=== PATIENT | female | born 1975 | race Caucasian/White ===

== ENCOUNTER 2018-08-12 13:27 | Observation (INO) ==
--- NOTE | 2018-08-11 22:01 | Discharge Summary ---
Date of Encounter: 08/15/18 Time of Encounter: 16:00 - Discharge Diagnosis (1) Arthritis of right knee Priority: Primary Status: Chronic (2) Status post total right knee replacement Priority: Primary Status: Acute (3) Tobacco dependence Priority: Secondary Status: Chronic (4) Hypothyroid Priority: Secondary Status: Chronic Qualifiers: Hypothyroidism type: unspecified Qualified Code(s): E03.9 - Hypothyroidism, unspecified (5) Bipolar disorder Priority: Secondary Status: Chronic Qualifiers: Active/Remission status: remission status unspecified Qualified Code(s): F31.9 - Bipolar disorder, unspecified (6) Sinus tachycardia Priority: Secondary Status: Chronic - Hospital Course Hospital course: Ms. Mckee is a 43 year old female Date of procedure: 08/12/18 Pre-op diagnosis: Right knee arthritis Post-op diagnosis: same Procedure: Right robotic-assisted Total knee replacement Patient had uneventful postoperative course. She developed some swelling to the operative extremity and doppler revealed no clot. Patient discharged to rehab with outpatient follow up arranged - Time Spent with Patient Total time spent providing and/or coordinating discharge services: - Discharge Medications Prescriptions: New Aspirin Enteric Coated [Aspirin EC] 325 mg PO BID 10 Days #20 tablet. Acetaminophen [Non-Aspirin Extra Strength] 500 mg PO Q6H PRN 7 Days #28 tablet PRN Reason: Mild To Moderate Pain Continued Albuterol Sulfate [Proair Hfa] 2 puff PO Q6H PRN PRN Reason: Shortness Of Breath diazePAM [Valium] 5 mg PO TID PRN PRN Reason: Anxiety Fluticasone Propionate [Flovent Hfa] 2 puff PO BID Gabapentin [Neurontin] 300 mg PO BID Ibuprofen [Motrin] 600 mg PO DAILY PRN PRN Reason: Pain lamoTRIgine [Lamictal] 25 mg PO HS Metoprolol Succinate [Toprol Xl] 25 mg PO QAM raNITIdine HCl [Zantac] 150 mg PO HS Sulindac 200 mg PO BID Home Medications: Acetaminophen [Non-Aspirin Extra Strength] 500 mg PO Q6H PRN 7 Days #28 tablet 08/11/18 [Rx] Aspirin Enteric Coated [Aspirin EC] 325 mg PO BID 10 Days #20 tablet. 08/11/18 [Rx] Albuterol Sulfate [Proair Hfa] 2 puff PO Q6H PRN 08/12/18 [History] Fluticasone Propionate [Flovent Hfa] 2 puff PO BID 08/12/18 [History] Gabapentin [Neurontin] 300 mg PO BID 08/12/18 [History] Ibuprofen [Motrin] 600 mg PO DAILY PRN 08/12/18 [History] Metoprolol Succinate [Toprol Xl] 25 mg PO QAM 08/12/18 [History] Sulindac 200 mg PO BID 08/12/18 [History] diazePAM [Valium] 5 mg PO TID PRN 08/12/18 [History] lamoTRIgine [Lamictal] 25 mg PO HS 08/12/18 [History] raNITIdine HCl [Zantac] 150 mg PO HS 08/12/18 [History] Allergies/Adverse Reactions: Allergy/AdvReac Type Severity Reaction Status Date / Time No Known Allergies Allergy Verified 08/12/18 13:51 Date of admission: 08/12/18 Primary care physician: Eladio Vazquez MD Discharging clinician: Rajesh De La Cruz Anticipated date of discharge: 08/15/18 - VTE Documentation of Mechanical Device: Venous foot pump, device - Patient Status Disposition: Transfer SNF Condition: Good Functional capacity at discharge: uses cane/walker Overall status at discharge: patient is progressing back to baseline - Discharge Instructions Follow Up With: Eladio Vazquez MD [Primary Care Provider] - - Diet and Activity Activity: as per physical therapy Diet: advance to your usual diet
--- NOTE | 2018-08-12 12:40 | Anesthesia Evaluation PreOp ---
Date of Encounter: 08/12/18 Time of Encounter: 11:54 - Past History Planned Operation: RIGHT TKA Cardiac History: Arrhythmia (PALPITATIONS, ON METOPROLOL, HOLTER UNREMARKABLE) Pulmonary History: Smoker, COPD (MILD) [employer] F[employer] History: Other (BIPOLAR,) Other Medical History: Thyroid, GERD, Other (ORAL HERPES) Anesthesia History: No Prior Anesthetic Complications, Past Anesthesia : No Test: Negative (08/08) Alcohol Use: none Drug use: none Medications and Allergies Acetaminophen [Non-Aspirin Extra Strength] 500 mg PO Q6H PRN 7 Days #28 tablet 08/11/18 [Rx] Aspirin Enteric Coated [Aspirin EC] 325 mg PO BID 10 Days #20 tablet.dr 08/11/18 [Rx] Docusate Sodium [Colace] 100 mg PO BID 5 Days #10 capsule 08/11/18 [Rx] OxyCODONE Immed Rel [Roxicodone 5 MG] 5 mg PO Q6HR PRN 5 Days #20 tablet 08/11/18 [Rx] Albuterol Sulfate [Proair Hfa] 2 puff PO Q6H PRN 08/12/18 [History] Fluticasone Propionate [Flovent Hfa] 2 puff PO BID 08/12/18 [History] Gabapentin [Neurontin] 300 mg PO BID 08/12/18 [History] Ibuprofen [Motrin] 600 mg PO DAILY PRN 08/12/18 [History] Metoprolol Succinate [Toprol Xl] 25 mg PO QAM 08/12/18 [History] Sulindac 200 mg PO BID 08/12/18 [History] diazePAM [Valium] 5 mg PO TID PRN 08/12/18 [History] lamoTRIgine [Lamictal] 25 mg PO HS 08/12/18 [History] raNITIdine HCl [Zantac] 150 mg PO HS 08/12/18 [History] Allergy/AdvReac Type Severity Reaction Status Date / Time No Known Allergies Allergy Verified 08/12/18 13:51 - Meds/Allergy Pre-op Review Medications Reviewed: Yes Allergies Reviewed: Yes Beta Blockers on Current Med List: Yes Anesthesia Exam Weight: 81 KG - BMI 27 NPO (# of Hours): 8 - HEENT Mallampati: I Teeth: Normal - Cardiac Rhythm: Regular - Pulmonary Breath Sounds: bilateral Clear Anesthesia Assess/Plan ASA Score: 3 Anesthetic Plan: Regional Nerve Block, MAC, Spinal Monitoring Plan: Standard Monitors Recovery Plan: PACU
--- NOTE | 2018-08-12 13:44 | History & Physical Report ---
Date of Encounter: 08/12/18 Time of Encounter: 13:43 24 Hour HP Update - Instructions Instructions: If the History and Physical is less than 30 days old and was completed prior to A.M. admission and or procedure and has NOT been updated on calendar day of procedure please complete this update prior to performing procedure. - Update Patient reports changes in Medical Condition: No Changes in examination, assessment, or condition: No Changes in Medication: No Preop tests/diagnostics Reviewed: Yes Surgery Remains Indicated: Yes Consent for Planned Operative Procedure(s) Verified: Yes - Pre-Operative Checklist Preoperative Checklist Indicated: No Prophylactic Antibiotic Ordered: Yes Is VTE Prophylaxis Indicated?: Yes
[2018-08-12] MEDS ORDERED: CeFAZolin Syr 2,000MG/20 ML 2,000 MG/20 ML SYRINGE IVPB ONE (13:45)
[2018-08-12] MEDS ORDERED: Ringers Solution, Lactated 1,000 ML IVC SCH ×2 (13:45→17:33)
[2018-08-12] MEDS ORDERED: Albuterol 2.5 MG/3 ML NEBULIZER IH ONE ×2 (13:45→14:28)
[2018-08-12] MEDS ORDERED: *HR* Midazolam HCl 2 MG/2 ML VIAL ONE (13:54)
[2018-08-12] MEDS ORDERED: *HR* FentaNYL (PF) 100 MCG/2 ML VIAL ONE (13:55)
[2018-08-12] MEDS ORDERED: Propofol 500 MG/50 ML INFUS..BTL ONE (13:55)
[2018-08-12] MEDS ORDERED: ROPIVACAINE HCL/PF 0.5% 30 ML VIAL ONE (14:01)
[2018-08-12] MEDS ORDERED: Lidocaine -MPF 1% 5 ML AMPUL ONE (14:19)
[2018-08-12] MEDS ORDERED: Ethanol\\Acetic Acid\\Na Ace\\Ben 1,000 ML IRRIG.SOLN IR ONE (14:26)
[2018-08-12] MEDS ORDERED: traMADol 50 MG TABLET PO ONE (14:27)
[2018-08-12] MEDS ORDERED: Gabapentin 300 MG CAPSULE PO ONE (14:27)
[2018-08-12] MEDS ORDERED: Celecoxib 200 MG CAPSULE PO ONE ×2 (14:27→14:36)
[2018-08-12] MEDS ORDERED: diazePAM 5 MG TABLET PO ONE ×2 (14:28→14:36)
[2018-08-12] MEDS ORDERED: *HR* Promethazine 25 MG/ML VIAL IVP PRN ×2 (14:28→17:33)
[2018-08-12] MEDS ORDERED: *HR* HYDROmorphone (PF) 1 MG/ML SYRINGE IVP PRN (14:28)
[2018-08-12] MEDS ORDERED: *HR* OxyCODONE Immed Rel 5 MG TABLET PO PRN (14:28)
[2018-08-12] MEDS ORDERED: Ondansetron 4 MG/2 ML VIAL IVP ONE (14:28)
[2018-08-12] MEDS ORDERED: traMADol 50 MG TABLET ONE (14:36)
[2018-08-12] MEDS ORDERED: Gabapentin 300 MG CAPSULE ONE (14:37)
[2018-08-12] MEDS ORDERED: *HR* Propofol 200 MG/20 ML VIAL IVP ONE (14:43)
--- NOTE | 2018-08-12 15:16 | Anesthesia Procedures ---
Date of Encounter: 08/12/18 Time of Encounter: 15:00 Procedures: Anesthesia - Epidural/Spinal Patient ID/Chart reviewed: Yes Patient examined: Yes Consent Obtained: Yes Supplemental Oxygen: Nasal Cannula Supplemental Oxygen Rate (L/min): 2 Sedation: Versed (mg): 2 Sedation: Fentanyl (mcg): 100 Site Prep: Sterile prep and drape, 0.5% Chlorhexidine/Alcohol Patient position: upright Local Anesthetic: Lidocaine 1% Amount of Local Anesthetic used: 1 Interspace Used: L3-L4 Blood: No CSF: Yes Paresthesia: No Spinal Needle Gauge: 24 Spinal Dose: 2.5cc 0.5% PF Marcaine Procedure: naac - Nerve Block Procedure Date: 08/12/18 Time: 15:10 Surgical Procedure: Right TKA Checklist: Correct Patient Identifier, Correct procedure, History checked Correct side: Right Blood Thinner: No Monitor Applied: EKG, BP, Pulse Oximetry Supplemental Oxygen via Nasal Cannula (L/min): 2 Sedation: Versed (mg): 2 Sedation: Fentanyl (mcg): 100 Indication: Post Op Analgesia (per dr. mcleod) Pre-op Neuro Deficits: No Block Type: Other (adductor canal) Catheter placed: No Sterile Technique: Yes Ultrasound used: Yes Anatomy identified: Yes Visual spread of Local: Yes Neuro Stimulation: No Blood on Needle Aspiration: No Smooth Injection of Local: Yes Pain with Injection of Local: No Prep: Chlorhexadine Needle: 22 x 50 mm Stimuplex Local: Ropivacaine (0.5% with 4mg decadron) Volume (cc): 15 Number of Attempts: 1 Complications: None/effective block Vitals: [facility]
[2018-08-12] MEDS ORDERED: *HR* PHENYLEPHRINE 1,000 MCG/10 ML SYRINGE IVP ONE (15:17)
[2018-08-12] MEDS ORDERED: EPHEDrine 50 MG/ML VIAL ONE (15:20)
[2018-08-12] MEDS ORDERED: Ropivacaine/PF 0.5% 24.62 ML, EPINEPHrine 0.25 MG, Ketorolac 15 MG, Water for inj. (ste... IR ONE (15:35)
[2018-08-12] MEDS ORDERED: Dexamethasone 4 MG/ML VIAL ONE (15:43)
[2018-08-12] MEDS ORDERED: Ondansetron 4 MG/2 ML VIAL ONE (15:43)
[2018-08-12] MEDS ORDERED: Ketorolac 30 MG/ML VIAL ONE (15:56)
--- NOTE | 2018-08-12 16:13 | Orthopedic Operative Note ---
Date of procedure: 08/12/18 Pre-op diagnosis: Right knee arthritis Post-op diagnosis: same Procedure: Procedure: Right robotic-assisted Total knee replacement Estimated blood loss: 100 cc Hardware: Metal and polyethylene replacement. Mcdonald press-fit Femur: 3 Tibia: 3 PS insert: 9 Patella: 36 Exam Under anesthesia: Patient with 3 degrees hyperextension to degrees of varus as calculated by the robot full flexion and no instability Procedural Notes: Grade 4 arthritic changes medial compartment grade 3 arthritic changes patellofemoral joint. Operative procedure: The patient was brought to the operating room and placed on the operating room table. After general anesthesia was administered the operative knee was examined. Findings were noted in the exam under anesthesia. The operative extremity was prepped and draped in sterile surgical fashion. The patient received IV antibiotics prior to skin incision. A standard midline incision was made centered over the patella. The incision was made through the skin and subcutaneous tissue. A medial parapatellar tendon approach was performed. Care was taken to preserve tissue along the medial aspect of the patella. And to protect the patella tendon. The deep MCL was released off the medial tibia. The infra patella fat pad was excised. The patella was everted and cut was made at the level of the insertion of the quadriceps and patella tendon. The patella was sized the guide was seated and the lug holes are drilled. Knee was brought into flexion. Patient noted to have Steinmann pins were placed in the tibia and the femur for the tibial and femoral arrays respectively. Checkpoints were also placed in the tibia and the femur for calculation purposes. The knee including the femur and the tibial registered. Osteophytes, ACL and PCL were excised at this point. Extension and flexion were assessed with a valgus stress components were adjusted on the computer to balance the knee. Femoral cuts were made first with robotic assistance, these included the anterior cut posterior cuts chamfer cuts. Tibial cut was then performed with robotic assistance as well. Bone fragments were removed, as well as the medial and lateral meniscus. The size 3 femoral guide was seated box cut was made lug holes are drilled. The size 3 tibial tray was seated and prepared with the fin cutter. Trial reduction with the 9 PS Nae revealed extension of 0 degree and 3 degree varus full flexion. No varus valgus instability. Trial reduction revealed excellent patella tracking. All trial components were removed all bony surfaces were irrigated. The Tibia was seated followed by the femur, The selected Nae size was seated and secured patella. Patient had similar findings for motion and stability. The knee was closed by the PA. The knee was then irrigated out with 2 L of pulse irrigation. The extensor mechanism was closed with #2 FiberWire suture and #2 PDS suture. The subcutaneous tissue was then irrigated and closed deep with #1 PDS suture superficially with 0 PDS suture and skin was closed with zip tie The patient was then placed in a sterile dressing and a postoperative brace extubated and transferred to recovery room in stable condition. Anesthesia: spinal Surgeon: Rajesh De La Cruz Was there an assistant women's tennis coach present: No Estimated blood loss (cc): 100 Condition: stable Disposition: PACU
--- NOTE | 2018-08-12 17:16 | Anesthesia Evaluation Post Op ---
Date of Encounter: 08/12/18 Time of Encounter: 17:16 - Discharge PostOp Status: Transfer Patient to floor (Patient's vital signs have been reviewed. Patient is stable postoperatively and has adequately recovered from anesthesia. Patient is determined to have stable airway patency and respiratory function including respiratory rate and oxygen saturation. Patient has a stable heart rate, blood pressure and adequate hydration. Patients mental status is acceptable. Patients temperature is appropriate. Pain and nausea are adequately controlled.)
[2018-08-12] MEDS ORDERED: MOM Conc 10 ML UD.LIQ PO PRN (17:33)
[2018-08-12] MEDS ORDERED: traMADol 50 MG TABLET PO PRN (17:33)
[2018-08-12] MEDS ORDERED: Ondansetron 4 MG/2 ML VIAL IVP PRN (17:33)
[2018-08-12] MEDS ORDERED: Sennosides 8.6 MG TABLET PO PRN (17:33)
[2018-08-12] MEDS ORDERED: Temazepam 15 MG CAPSULE PO PRN (17:33)
[2018-08-12] MEDS ORDERED: Naloxone 0.4 MG/ML INJ IVP PRN (17:33)
[2018-08-12] MEDS: *HR* Enoxaparin 30 MG/0.3 ML SYRINGE SQ SCH (18:02)
[2018-08-12] MEDS: Ibuprofen 600 MG TABLET PO SCH (18:02)
[2018-08-12] MEDS: Ascorbic Acid 500 MG TABLET PO SCH (18:02)
[2018-08-12] MEDS: HYDROcodone BIT/Homatropine 5 MG TABLET PO PRN (19:49)
[2018-08-12] MEDS: lamoTRIgine 25 MG TABLET PO SCH (19:49)
[2018-08-12] MEDS: Famotidine 20 MG TABLET PO SCH (19:49)
[2018-08-12] MEDS: Gabapentin 300 MG CAPSULE PO SCH (19:49)
[2018-08-12] MEDS ORDERED: SULINDAC 200 MG PO SCH (21:00)
[2018-08-12] MEDS: *HR* OxyCODONE Immed Rel 5 MG TABLET PO PRN (23:25)
[2018-08-13] MEDS: *HR* OxyCODONE Immed Rel 5 MG TABLET PO PRN ×4 (04:00→18:26)
[2018-08-13] MEDS: *HR* Enoxaparin 30 MG/0.3 ML SYRINGE SQ SCH ×2 (06:30→16:18)
--- NOTE | 2018-08-13 06:42 | Orthopedics Progress Note ---
Date of Encounter: 08/13/18 Time of Encounter: 06:42 Subjective Interval history: Patient was seen this morning doing well without complaints. Afebrile vital signs stable. Operative extremity: Neurovascularly intact Dressing clean dry and intact Calves nontender Assessment and plan: Continue with postoperative care Plan for discharge today Objective Vital signs: Vital Signs Temp Pulse Resp BP Pulse Ox 08/13/18 03:47 97.6 F 90 18 109/72 97 08/12/18 23:11 97.7 F 103 16 107/67 97 08/12/18 22:45 98.6 F 94 16 119/73 98 08/12/18 21:45 97 08/12/18 19:45 98.4 F 108 16 103/67 97 08/12/18 18:48 98.3 F 99 18 113/72 98 08/12/18 18:07 97.4 F L 100 18 99/62 98 08/12/18 17:42 98.3 F 104 18 99/67 97 08/12/18 17:34 97.9 F 102 18 104/67 100 08/12/18 17:13 97.9 F 98 16 98/59 100 08/12/18 17:03 98.0 F 102 16 102/63 99 08/12/18 16:53 103 16 108/71 99 08/12/18 16:43 102 16 91/61 99 08/12/18 16:33 97.8 F 125 16 95/68 98 08/12/18 15:07 90 16 102/64 99 08/12/18 14:52 104 16 96/80 100 08/12/18 14:13 18 104/68 97 08/12/18 13:42 98.6 F 82 18 104/68 97 Intake and Output 08/12/18 08/12/18 08/13/18 15:59 23:59 07:59 Intake Total 640 / 640 150 / 150 Output Total 100 / 100 Balance 540 / 540 150 / 150 Intake: IV Fluids 100 / 100 Ancef 2,000 MG In 0.9 % Sodium 100 / 100 Chloride 100 ML @ 200 mls/hr IVPB Q8HR [facility] Rx#:[id number] Oral 640 / 640 50 / 50 Output: Urine 0 / 0 Estimated Blood Loss 100 / 100 Other: Meal Dinner Percent of Meal Consumed 100% # Voids 1 1 Weight 78.018 kg 80.82 kg Patient Weight 08/13/18 23:59 Weight 80.82 kg - Labs CBC & BMP: 08/12/18 16:48 Consult Discharge Plan - Plan Referrals: Eladio Vazquez MD [Primary Care Provider] - Prescriptions: Aspirin Enteric Coated [Aspirin EC] 325 mg PO BID 10 Days #20 tablet. Docusate Sodium [Colace] 100 mg PO BID 5 Days #10 capsule Acetaminophen [Non-Aspirin Extra Strength] 500 mg PO Q6H PRN 7 Days #28 tablet PRN Reason: Mild To Moderate Pain OxyCODONE Immed Rel [Roxicodone 5 MG] 5 mg PO Q6HR PRN 5 Days #20 tablet PRN Reason: Severe Pain
[2018-08-13 07:02] LABS: Basophils % 0.1 %; Hematocrit 34.4 % (35.3-44.9); Hemoglobin 11.2 g/dL (11.5-15.4); Immature Granulocytes % 0.6 % (0-4); Lymphocytes # 0.6 K/mcL (0.6-4.6); Lymphocytes % 2.9 %; Mean Corpuscular HGB Conc 32.6 g/dL (31.6-35.5); Mean Corpuscular Hemoglobin 29.4 pg (28.0-33.3); Mean Corpuscular Volume 90.3 fL (83.0-100.0); Mean Platelet Volume 11.1 fL (9.4-12.4); Monocytes # 1.5 K/mcL (0.0-1.3); Monocytes % 7.8 %; Neutrophils # 16.8 K/mcL (1.6-8.9); Platelet Count 248 K/mcL (140-400); Red Blood Count 3.81 M/mcL (3.82-4.97); Red Cell Distribution Width 13.6 % (11.5-14.5); Segmented Neutrophils % 88.6 %
[2018-08-13 07:27] LABS: BUN/Creatinine Ratio 13 (6-26); Blood Urea Nitrogen 9 mg/dL (6-20); Calcium 8.8 mg/dL (8.6-10.3); Carbon Dioxide 24 mEq/L (23-29); Chloride 107 mEq/L (98-107); Glucose 156 mg/dL (70-105); Osmolality,Calculated 288 (280-300); Potassium 3.7 mEq/L (3.5-5.1); Sodium 138 mEq/L (136-145); eGFR For Non-African Americans > 60 (> 60)
[2018-08-13] MEDS: MOMETASONE FUROATE 100 mcg Inhaler IH SCH ×2 (07:37→20:41)
[2018-08-13] MEDS: Ascorbic Acid 500 MG TABLET PO SCH ×2 (08:42→16:18)
[2018-08-13] MEDS: Metoprolol XL (24 HR) Succ 25 MG TAB.ER.24H PO SCH (08:42)
[2018-08-13] MEDS: Multivit/Ca/Min/Fe/FA 1 TAB TABLET PO SCH (08:42)
[2018-08-13] MEDS: Ibuprofen 600 MG TABLET PO SCH (08:42)
[2018-08-13] MEDS: Gabapentin 300 MG CAPSULE PO SCH ×2 (08:42→20:14)
--- NOTE | 2018-08-13 11:54 | Physician Discharge Referral ---
ExtendedCare Referral Info Transfer To: [facility] Provider in Charge: Dr. Rajesh De La Cruz - Diagnosis (1) Arthritis of right knee Priority: Primary Status: Chronic (2) Status post total right knee replacement Priority: Primary Status: Acute (3) Tobacco dependence Priority: Secondary Status: Chronic (4) Hypothyroid Priority: Secondary Status: Chronic (5) Bipolar disorder Priority: Secondary Status: Chronic (6) Sinus tachycardia Priority: Secondary Status: Chronic Expected Duration of Placement: less than 30 days Prognosis: Good Aware of Diagnosis: Patient Aware of Prognosis: Patient - Transfer Medications Prescriptions: Aspirin Enteric Coated [Aspirin EC] 325 mg PO BID 10 Days #20 tablet. Docusate Sodium [Colace] 100 mg PO BID 5 Days #10 capsule Acetaminophen [Non-Aspirin Extra Strength] 500 mg PO Q6H PRN 7 Days #28 tablet PRN Reason: Mild To Moderate Pain OxyCODONE Immed Rel [Roxicodone 5 MG] 5 mg PO Q6HR PRN 5 Days #20 tablet PRN Reason: Severe Pain Home Medications: Acetaminophen [Non-Aspirin Extra Strength] 500 mg PO Q6H PRN 7 Days #28 tablet 08/11/18 [Rx] Aspirin Enteric Coated [Aspirin EC] 325 mg PO BID 10 Days #20 tablet. 08/11/18 [Rx] Docusate Sodium [Colace] 100 mg PO BID 5 Days #10 capsule 08/11/18 [Rx] OxyCODONE Immed Rel [Roxicodone 5 MG] 5 mg PO Q6HR PRN 5 Days #20 tablet 08/11/18 [Rx] Albuterol Sulfate [Proair Hfa] 2 puff PO Q6H PRN 08/12/18 [History] Fluticasone Propionate [Flovent Hfa] 2 puff PO BID 08/12/18 [History] Gabapentin [Neurontin] 300 mg PO BID 08/12/18 [History] Ibuprofen [Motrin] 600 mg PO DAILY PRN 08/12/18 [History] Metoprolol Succinate [Toprol Xl] 25 mg PO QAM 08/12/18 [History] Sulindac 200 mg PO BID 08/12/18 [History] diazePAM [Valium] 5 mg PO TID PRN 08/12/18 [History] lamoTRIgine [Lamictal] 25 mg PO HS 08/12/18 [History] raNITIdine HCl [Zantac] 150 mg PO HS 08/12/18 [History] Allergies/Adverse Reactions: Allergy/AdvReac Type Severity Reaction Status Date / Time No Known Allergies Allergy Verified 08/12/18 13:51 - Respiratory Orders Smoking Cessation: Smoking cessation has been advised. For more information, call the [facility] Quit Line at 2-902-UJLG-NOW. - Ancillary Orders May use pressure relief devices daily prn, May go on XUAN w/family/respon libertarian w/meds at nurse discretion PRN, May consult with Dentist, Mechanical Manager, Physicians Assistant PRN - Rehabiliation Orders Rehab Potential: Good Rehab Orders: Evaluation for Physical Therapy, Evaluation for Occupational Therapy Other: Total Knee replacement Precautions x 6 weeks Apply cold therapy wrap 3-6x/day for 20 minutes at a time. Encourage ambulation throughout the day and incentive spirometer 10x/hour. Elevate affected extremity above heart as tolerated. Brace: Wear knee immobilizer at night x 2 weeks. - Treatments Skin tear care topically daily PRN per policy List/Other: Opsite placed. Keep dressing intact until first follow up appointment. If greater than 50% saturated, notify office, remove dressing and place appropriate dressing back in place. Leave Zipline intact. Opsite dressing is water resist ant, not water-proof. OK to shower, but do not get dressing wet. - Diet Orders Regular CERTIFICATION: I certify that the transfer of the above named patient to an Extended Care Facility is necessary for the continuing treatment of the diagnosis listed. The above information is true and accurate reflection of patient's current conditi on. Confidential - Redisclosure prohibited without a patient's written consent.
--- NOTE | 2018-08-13 11:54 | Event Note ---
Date of Encounter: 08/13/18 Time of Encounter: 12:50 Date of procedure: 08/12/18 Pre-op diagnosis: Right knee arthritis Post-op diagnosis: same Procedure: Right robotic-assisted Total knee replacement POD#1 Patient seen at bedside. Patient tearful and asking about going to smoke a cigarette. Admits to being in cessation program and has been using nicotine gum at home however has been declining nicotine patch here in hospital. A&Ox3 Dressing and incision c/d/i No calf tenderness, erythema, or warmth. Neurovascularly intact b/l LE. Labwork, vitals, and medications reviewed. Pain control: Adequate Participating in PT. All questions and concerns addressed. Educated on use of incentive spirometer, ambulation, and hydration. Patient educated on post-operative restrictions and care. Addressed: Begin Nicotine gum. Patient has IV access and therefore will not be able to leave hospital to smoke. Patient made aware of the above. D/C plan: ECF - awaiting authorization
[2018-08-13] MEDS: diazePAM 5 MG TABLET PO PRN (12:32)
[2018-08-13] MEDS: Nicotine 2 MG GUM BC PRN ×2 (16:58→20:13)
[2018-08-13 17:29] LABS: Bilirubin,Urine Negative (Negative); Blood,Urine Negative (Negative); Clarity,Urine Cloudy (Clear); Color,Urine Yellow (Yellow); Glucose,Urine (UA) Normal (Normal); Ketones,Urine Negative (Negative); Leukocyte Esterase,Urine Negative (Negative); Nitrite,Urine Negative (Negative); Protein,Urine Negative (Neg-Trace); Specific Gravity,Urine 1.019 (1.010-1.025); Urobilinogen,Urine Normal (Normal)
[2018-08-13 17:31] LABS: Hyaline Casts,Urine Few per lpf (None-Few); Squamous Epithelial Cell,Urine Many per lpf (None-Few)
[2018-08-13 17:59] LABS: Bacteria,Urine Many per hpf (None-Few); RBC,Urine 0-3 per hpf (0-3)
[2018-08-13] MEDS: lamoTRIgine 25 MG TABLET PO SCH (20:13)
[2018-08-13] MEDS: Famotidine 20 MG TABLET PO SCH (20:14)
[2018-08-13] MEDS: HYDROcodone BIT/Homatropine 5 MG TABLET PO PRN (20:14)
[2018-08-14] MEDS: *HR* OxyCODONE Immed Rel 5 MG TABLET PO PRN (05:30)
[2018-08-14] MEDS: *HR* Enoxaparin 30 MG/0.3 ML SYRINGE SQ SCH ×2 (05:30→17:37)
[2018-08-14] MEDS: diazePAM 5 MG TABLET PO PRN (06:33)
--- NOTE | 2018-08-14 06:42 | Orthopedics Progress Note ---
Date of Encounter: 08/14/18 Time of Encounter: 06:42 Subjective Interval history: Patient was seen this morning sobbing Afebrile vital signs stable. Operative extremity: Neurovascularly intact Dressing clean dry and intact Calves nontender Assessment and plan: Continue with postoperative care Patient going to [facility], discharge when approved Objective Vital signs: Vital Signs Temp Pulse Resp BP Pulse Ox 08/14/18 04:54 98.5 F 78 17 104/71 99 08/13/18 22:42 98.1 F 74 16 95/65 99 08/13/18 20:42 16 100 08/13/18 18:50 98.1 F 82 18 103/68 99 08/13/18 18:04 16 100 08/13/18 16:49 97.9 F 61 16 101/70 100 08/13/18 13:58 98/66 08/13/18 10:50 99.2 F 86 18 98/66 100 08/13/18 07:37 16 98 08/13/18 07:02 97.8 F 94 14 100/64 99 Intake and Output 08/13/18 08/13/18 08/14/18 15:59 23:59 07:59 Intake Total 240 / 390 Balance 240 / 390 Intake: Oral 240 / 290 Other: Meal Lunch Percent of Meal Consumed 50% # Voids 1 1 Weight 81 kg Patient Weight 08/14/18 23:59 Weight 81 kg - Labs CBC & BMP: 08/13/18 05:58 08/13/18 05:58 Labs: Abnormal lab results WBC 19.0 K/mcL (4.3-11.1) H D 08/13/18 05:58 RBC 3.81 M/mcL (3.82-4.97) L 08/13/18 05:58 Hgb 11.2 g/dL (11.5-15.4) L 08/13/18 05:58 Hct 34.4 % (35.3-44.9) L 08/13/18 05:58 16.8 K/mcL (1.6-8.9) H 08/13/18 05:58 1.5 K/mcL (0.0-1.3) H 08/13/18 05:58 Glucose 156 mg/dL (70-105) H 08/13/18 05:58 Cloudy (Clear) A 08/13/18 17:05 5-15 per hpf (0-3) H 08/13/18 17:05 Ur Squamous Epith Cells Many per lpf (None-Few) H 08/13/18 17:05 Many per hpf (None-Few) H 08/13/18 17:05 Ur Culture Indicated? YES (NO) A 08/13/18 17:05 Consult Discharge Plan - Plan Referrals: Eladio Vazquez MD [Primary Care Provider] - Prescriptions: Aspirin Enteric Coated [Aspirin EC] 325 mg PO BID 10 Days #20 tablet. Docusate Sodium [Colace] 100 mg PO BID 5 Days #10 capsule Acetaminophen [Non-Aspirin Extra Strength] 500 mg PO Q6H PRN 7 Days #28 tablet PRN Reason: Mild To Moderate Pain OxyCODONE Immed Rel [Roxicodone 5 MG] 5 mg PO Q6HR PRN 5 Days #20 tablet PRN Reason: Severe Pain
[2018-08-14 06:49] LABS: Basophils # 0.1 K/mcL (0.0-0.2); Basophils % 0.4 %; Eosinophils # 0.1 K/mcL (0.0-0.6); Eosinophils % 0.9 %; Hematocrit 31.9 % (35.3-44.9); Hemoglobin 10.5 g/dL (11.5-15.4); Immature Granulocytes % 0.3 % (0-4); Lymphocytes % 17.2 %; Mean Corpuscular HGB Conc 32.9 g/dL (31.6-35.5); Mean Corpuscular Hemoglobin 29.7 pg (28.0-33.3); Mean Corpuscular Volume 90.4 fL (83.0-100.0); Mean Platelet Volume 10.7 fL (9.4-12.4); Monocytes # 1.6 K/mcL (0.0-1.3); Monocytes % 13.8 %; Neutrophils # 7.9 K/mcL (1.6-8.9); Platelet Count 243 K/mcL (140-400); Red Blood Count 3.53 M/mcL (3.82-4.97); Red Cell Distribution Width 13.9 % (11.5-14.5); Segmented Neutrophils % 67.4 %
[2018-08-14 07:10] LABS: BUN/Creatinine Ratio 10 (6-26); Blood Urea Nitrogen 6 mg/dL (6-20); Calcium 8.3 mg/dL (8.6-10.3); Carbon Dioxide 26 mEq/L (23-29); Chloride 107 mEq/L (98-107); Glucose 107 mg/dL (70-105); Osmolality,Calculated 286 (280-300); Potassium 4.2 mEq/L (3.5-5.1); Sodium 139 mEq/L (136-145); eGFR For Non-African Americans > 60 (> 60)
[2018-08-14] MEDS: MOMETASONE FUROATE 100 mcg Inhaler IH SCH ×2 (07:51→20:41)
[2018-08-14] MEDS: Ascorbic Acid 500 MG TABLET PO SCH ×2 (08:19→17:37)
[2018-08-14] MEDS: Multivit/Ca/Min/Fe/FA 1 TAB TABLET PO SCH (08:19)
[2018-08-14] MEDS: Gabapentin 300 MG CAPSULE PO SCH ×2 (08:19→21:08)
[2018-08-14] MEDS: Metoprolol XL (24 HR) Succ 25 MG TAB.ER.24H PO SCH (08:20)
[2018-08-14] MEDS: Ketorolac 30 MG/ML VIAL IVP PRN ×3 (08:21→21:08)
--- NOTE | 2018-08-14 09:57 | Event Note ---
Date of Encounter: 08/14/18 Time of Encounter: 10:05 Date of procedure: 08/12/18 Pre-op diagnosis: Right knee arthritis Post-op diagnosis: same Procedure: Right robotic-assisted Total knee replacement POD#2 Patient seen at bedside. Patient resting comfortably in bed. No acute distress. A&Ox3 Dressing and incision c/d/i No calf tenderness, erythema, or warmth. Neurovascularly intact b/l LE. Labwork, vitals, and medications reviewed. Pain control: Adequate Participating in PT. All questions and concerns addressed. Educated on use of incentive spirometer, ambulation, and hydration. Patient educated on post-operative restrictions and care. Addressed: Continue Nicotine gum. Patient has IV access and therefore will not be able to leave hospital to smoke. Patient made aware of the above. D/C plan: ECF - awaiting authorization
[2018-08-14] MEDS: lamoTRIgine 25 MG TABLET PO SCH (21:08)
[2018-08-14] MEDS: Famotidine 20 MG TABLET PO SCH (21:08)
[2018-08-15] MEDS: diazePAM 5 MG TABLET PO PRN (01:44)
[2018-08-15 02:58] LABS: Basophils # 0.1 K/mcL (0.0-0.2); Basophils % 0.6 %; Eosinophils # 0.2 K/mcL (0.0-0.6); Hematocrit 32.2 % (35.3-44.9); Hemoglobin 10.3 g/dL (11.5-15.4); Immature Granulocytes % 0.3 % (0-4); Lymphocytes # 2.1 K/mcL (0.6-4.6); Mean Corpuscular Hemoglobin 29.4 pg (28.0-33.3); Mean Platelet Volume 11.5 fL (9.4-12.4); Monocytes # 1.3 K/mcL (0.0-1.3); Monocytes % 12.8 %; Neutrophils # 6.6 K/mcL (1.6-8.9); Platelet Count 253 K/mcL (140-400); Red Cell Distribution Width 14.1 % (11.5-14.5); Segmented Neutrophils % 64.3 %
[2018-08-15 03:57] LABS: BUN/Creatinine Ratio 12 (6-26); Blood Urea Nitrogen 8 mg/dL (6-20); Calcium 8.1 mg/dL (8.6-10.3); Carbon Dioxide 24 mEq/L (23-29); Chloride 108 mEq/L (98-107); Glucose 125 mg/dL (70-105); Osmolality,Calculated 290 (280-300); Potassium 3.8 mEq/L (3.5-5.1); Sodium 140 mEq/L (136-145); eGFR For Non-African Americans > 60 (> 60)
[2018-08-15] MEDS: Ketorolac 30 MG/ML VIAL IVP PRN (05:44)
[2018-08-15] MEDS: *HR* Enoxaparin 30 MG/0.3 ML SYRINGE SQ SCH (05:44)
--- NOTE | 2018-08-15 06:46 | Orthopedics Progress Note ---
Date of Encounter: 08/15/18 Time of Encounter: 06:45 Subjective Interval history: Patient was seen this morning doing well Afebrile vital signs stable. Operative extremity: Neurovascularly intact Dressing clean dry and intact Calves nontender Assessment and plan: Continue with postoperative care Patient going to [facility], discharge when approved Objective Vital signs: Vital Signs Temp Pulse Resp BP Pulse Ox 08/15/18 04:07 98.8 F 95 17 100/66 96 08/14/18 22:22 99.0 F 88 17 107/71 95 08/14/18 20:44 16 98 08/14/18 18:58 98.6 F 89 17 112/76 99 08/14/18 16:16 99.7 F H 98 15 120/85 99 08/14/18 14:39 85 113/72 08/14/18 09:55 98.2 F 80 16 88/56 96 08/14/18 07:53 19 98 Intake and Output 08/14/18 08/14/18 08/15/18 15:59 23:59 07:59 Intake Total 250 / 250 300 / 300 Balance 250 / 250 300 / 300 Intake: Oral 250 / 250 300 / 300 Other: Stool Consistency loose # Voids 1 1 # Bowel Movements 3 Weight 81.1 kg Patient Weight 08/15/18 23:59 Weight 81.1 kg - Labs CBC & BMP: 08/15/18 02:06 08/15/18 02:06 Labs: Abnormal lab results WBC 11.7 K/mcL (4.3-11.1) H 08/14/18 06:27 RBC 3.50 M/mcL (3.82-4.97) L 08/15/18 02:06 Hgb 10.3 g/dL (11.5-15.4) L 08/15/18 02:06 Hct 32.2 % (35.3-44.9) L 08/15/18 02:06 16.8 K/mcL (1.6-8.9) H 08/13/18 05:58 1.6 K/mcL (0.0-1.3) H 08/14/18 06:27 Chloride 108 mEq/L (98-107) H 08/15/18 02:06 Glucose 125 mg/dL (70-105) H 08/15/18 02:06 Calcium 8.1 mg/dL (8.6-10.3) L 08/15/18 02:06 Cloudy (Clear) A 08/13/18 17:05 5-15 per hpf (0-3) H 08/13/18 17:05 Ur Squamous Epith Cells Many per lpf (None-Few) H 08/13/18 17:05 Many per hpf (None-Few) H 08/13/18 17:05 Ur Culture Indicated? YES (NO) A 08/13/18 17:05 Consult Discharge Plan - Plan Referrals: Eladio Vazquez MD [Primary Care Provider] -
[2018-08-15] MEDS: *HR* OxyCODONE Immed Rel 5 MG TABLET PO PRN ×2 (07:01→14:05)
[2018-08-15] MEDS: MOMETASONE FUROATE 100 mcg Inhaler IH SCH (07:46)
[2018-08-15] MEDS: Ascorbic Acid 500 MG TABLET PO SCH (08:43)
[2018-08-15] MEDS: Gabapentin 300 MG CAPSULE PO SCH (08:43)
[2018-08-15] MEDS: Multivit/Ca/Min/Fe/FA 1 TAB TABLET PO SCH (08:43)
[2018-08-15] MEDS ORDERED: Ibuprofen 600 MG TABLET PO SCH (09:00)
[2018-08-15 11:44] VITALS: BP 116/74
[2018-08-15] MEDS: Metoprolol XL (24 HR) Succ 25 MG TAB.ER.24H PO SCH (12:59)
== END 2018-08-15 15:27 ==
LOC: 3NENU 13:27 → SAMDAY 13:27 → 3NENU 17:33
PROVIDERS: ADMIT Orthopaedic Surgery; ATTEND Orthopaedic Surgery

== ENCOUNTER 2020-12-22 19:16 | Inpatient (IN) ==
[2020-12-22 20:40] LABS: Basophils # 0.1 K/mcL (0.0-0.2); Basophils % 0.7 %; Eosinophils # 0.2 K/mcL (0.0-0.6); Eosinophils % 1.8 %; Hemoglobin 12.2 g/dL (11.5-15.4); Immature Granulocytes % 0.1 % (0-4); Lymphocytes # 1.4 K/mcL (0.6-4.6); Lymphocytes % 15.3 %; Mean Corpuscular HGB Conc 32.1 g/dL (31.6-35.5); Mean Corpuscular Hemoglobin 27.2 pg (28.0-33.3); Mean Corpuscular Volume 84.6 fL (83.0-100.0); Monocytes # 0.7 K/mcL (0.0-1.3); Neutrophils # 6.6 K/mcL (1.6-8.9); Platelet Count 349 K/mcL (140-400); Red Blood Count 4.49 M/mcL (3.82-4.97); Red Cell Distribution Width 14.5 % (11.5-14.5); Segmented Neutrophils % 74.1 %
[2020-12-22 21:01] LABS: Acetaminophen < 10 mcg/mL (10-20); Alanine Aminotransferase 8 Units/L (7-52); Albumin 4.3 g/dL (3.5-5.7); Albumin/Globulin Ratio 1.7 (1.1-2.2); Alkaline Phosphatase 68 Units/L (34-104); Aspartate Amino Transferase 12 Units/L (13-39); BUN/Creatinine Ratio 6 (6-26); Bilirubin,Direct 0.1 mg/dL (0.0-0.2); Bilirubin,Indirect 0.2 mg/dL (0.0-1.0); Bilirubin,Total 0.3 mg/dL (0.3-1.0); Blood Urea Nitrogen 5 mg/dL (6-20); Calcium 9.4 mg/dL (8.6-10.3); Carbon Dioxide 24 mEq/L (23-29); Chloride 110 mEq/L (98-107); Ethanol < 10 mg/dL (Less than 10); Globulin 2.5 g/dL (2.4-3.5); Glucose 117 mg/dL (70-105); Osmolality,Calculated 288 (280-300); Potassium 3.8 mEq/L (3.5-5.1); Salicylate < 2.5 mg/dL (15.0-30.0); Sodium 140 mEq/L (136-145); Total Protein 6.8 g/dL (6.4-8.9); eGFR For African Americans > 60 (> 60); eGFR For Non-African Americans > 60 (> 60)
[2020-12-22 21:04] LABS: Amorphous Sediment,Urine Few per hpf (None-Few); Bacteria,Urine Few per hpf (None-Few); Bilirubin,Urine Negative (Negative); Blood,Urine Trace (Negative); Clarity,Urine Turbid (Clear); Color,Urine Yellow (Yellow); Glucose,Urine (UA) Normal (Normal); Ketones,Urine 10 mg/dL (Negative); Leukocyte Esterase,Urine Moderate (Negative); Mucus,Urine Few per lpf (None-Few); Nitrite,Urine Negative (Negative); Protein,Urine 50 mg/dL (Neg-Trace); RBC,Urine 0-3 per hpf (0-3); Specific Gravity,Urine > 1.030 (1.010-1.025); Squamous Epithelial Cell,Urine Few per hpf (None-Few); Urobilinogen,Urine Normal (Normal)
[2020-12-22 22:19] LABS: Amphetamine Screen,Urine Negative ng/mL (Cutoff=1000); Barbiturate Screen,Urine Negative ng/mL (Cutoff=200); Benzodiazepines Screen,Urine Positive ng/mL (Cutoff=200); Cannabinoid Screen,Urine Negative ng/mL (Cutoff = 50); Cocaine Screen,Urine Negative ng/mL (Cutoff= 300); Opiate Screen,Urine Negative ng/mL (Cutoff=300); Phencyclidine Screen,Urine Negative ng/mL (Cutoff=25)
[2020-12-22] MEDS ORDERED: Isovue-370 500 ML BOTTLE IVP ONE (23:55)
[2020-12-23 02:20] LABS: Influenza A PCR Negative (Negative); Influenza B PCR Negative (Negative); Resp. Syncytial Virus PCR Negative (Negative)
[2020-12-23 02:21] LABS: SARS-CoV-2 by PCR (In House) Negative (Negative)
[2020-12-23] MEDS ORDERED: *HR* LORazepam 2 MG/ML VIAL IM PRN (02:37)
[2020-12-23] MEDS ORDERED: Haloperidol Lactate 5 MG/ML VIAL IM PRN (02:37)
[2020-12-23] MEDS: *HR* LORazepam 1 MG TABLET PO PRN (06:12)
[2020-12-23] MEDS: haloperidoL 5 MG TABLET PO PRN (06:12)
[2020-12-23] MEDS ORDERED: MOM Conc 10 ML UD.LIQ PO PRN (08:19)
[2020-12-23] MEDS: Acetaminophen 325 MG TABLET PO PRN ×2 (14:50→21:29)
[2020-12-23] MEDS: Nitrofurantoin (BID) 100 MG CAPSULE PO SCH (17:12)
[2020-12-23] MEDS ORDERED: risperiDONE 1 MG TABLET PO SCH (21:00)
[2020-12-23] MEDS: Lithium Carbonate 300 MG CAPSULE PO SCH (21:27)
[2020-12-24] MEDS: haloperidoL 5 MG TABLET PO PRN ×2 (02:22→22:21)
[2020-12-24] MEDS: *HR* LORazepam 1 MG TABLET PO PRN ×2 (02:22→22:21)
[2020-12-24] MEDS: Lithium Carbonate 300 MG CAPSULE PO SCH ×2 (09:26→21:19)
[2020-12-24] MEDS: Nitrofurantoin (BID) 100 MG CAPSULE PO SCH ×2 (09:26→16:48)
[2020-12-24] MEDS: Fluticasone Propionate Nasal 50 MCG/SPRAY BOTTLE NS SCH (09:27)
[2020-12-24] MEDS: Metoprolol XL (24 HR) Succ 25 MG TAB.ER.24H PO SCH (09:39)
[2020-12-24] MEDS: hydrOXYzine pamoate 25 MG CAPSULE PO PRN (21:19)
[2020-12-24] MEDS: traZODone 50 MG TABLET PO PRN (21:19)
[2020-12-24] MEDS: Acetaminophen 325 MG TABLET PO PRN (21:19)
[2020-12-24] MEDS: RisperiDONE-M 1 MG TAB.RAPDIS PO SCH (21:19)
[2020-12-25] MEDS: Fluticasone Propionate Nasal 50 MCG/SPRAY BOTTLE NS SCH (09:17)
[2020-12-25] MEDS: Metoprolol XL (24 HR) Succ 25 MG TAB.ER.24H PO SCH (09:18)
[2020-12-25] MEDS: Lithium Carbonate 300 MG CAPSULE PO SCH ×2 (09:18→20:41)
[2020-12-25] MEDS: Nitrofurantoin (BID) 100 MG CAPSULE PO SCH ×2 (09:18→15:59)
[2020-12-25] MEDS: Acetaminophen 325 MG TABLET PO PRN (20:41)
[2020-12-25] MEDS: hydrOXYzine pamoate 25 MG CAPSULE PO PRN (20:41)
[2020-12-25] MEDS: RisperiDONE-M 1 MG TAB.RAPDIS PO SCH (20:41)
[2020-12-25] MEDS: traZODone 50 MG TABLET PO PRN (20:41)
[2020-12-26] MEDS: RisperiDONE-M 1 MG TAB.RAPDIS PO SCH ×2 (09:22→20:52)
[2020-12-26] MEDS: Metoprolol XL (24 HR) Succ 25 MG TAB.ER.24H PO SCH (09:22)
[2020-12-26] MEDS: Fluticasone Propionate Nasal 50 MCG/SPRAY BOTTLE NS SCH (09:22)
[2020-12-26] MEDS: Nitrofurantoin (BID) 100 MG CAPSULE PO SCH ×2 (09:22→16:41)
[2020-12-26] MEDS: Lithium Carbonate 300 MG CAPSULE PO SCH ×2 (09:22→20:52)
[2020-12-26] MEDS: Acetaminophen 325 MG TABLET PO PRN (20:51)
[2020-12-26] MEDS: traZODone 50 MG TABLET PO PRN (20:52)
[2020-12-26] MEDS: hydrOXYzine pamoate 25 MG CAPSULE PO PRN (20:52)
[2020-12-27] MEDS: Fluticasone Propionate Nasal 50 MCG/SPRAY BOTTLE NS SCH (11:17)
[2020-12-27] MEDS: RisperiDONE-M 1 MG TAB.RAPDIS PO SCH ×2 (11:17→20:54)
[2020-12-27] MEDS: Nitrofurantoin (BID) 100 MG CAPSULE PO SCH ×2 (11:18→17:12)
[2020-12-27] MEDS: Lithium Carbonate 300 MG CAPSULE PO SCH ×2 (11:18→20:54)
[2020-12-27] MEDS: Metoprolol XL (24 HR) Succ 25 MG TAB.ER.24H PO SCH (11:18)
[2020-12-27] MEDS: hydrOXYzine pamoate 25 MG CAPSULE PO PRN ×2 (20:54→22:09)
[2020-12-27] MEDS: Acetaminophen 325 MG TABLET PO PRN (20:54)
[2020-12-27] MEDS: traZODone 50 MG TABLET PO PRN ×2 (20:54→22:09)
[2020-12-28] MEDS: Nitrofurantoin (BID) 100 MG CAPSULE PO SCH ×2 (11:28→17:25)
[2020-12-28] MEDS: Metoprolol XL (24 HR) Succ 25 MG TAB.ER.24H PO SCH (11:29)
[2020-12-28] MEDS: RisperiDONE-M 1 MG TAB.RAPDIS PO SCH ×3 (11:29→20:18)
[2020-12-28] MEDS: Fluticasone Propionate Nasal 50 MCG/SPRAY BOTTLE NS SCH (11:34)
[2020-12-28] MEDS: Lithium Carbonate 300 MG CAPSULE PO SCH ×2 (14:44→20:17)
[2020-12-28] MEDS: hydrOXYzine pamoate 25 MG CAPSULE PO PRN ×2 (18:42→20:18)
[2020-12-28] MEDS: traZODone 50 MG TABLET PO PRN (20:18)
[2020-12-29] MEDS: Lithium Carbonate 300 MG CAPSULE PO SCH ×2 (08:35→20:04)
[2020-12-29] MEDS: Nitrofurantoin (BID) 100 MG CAPSULE PO SCH ×2 (08:35→16:09)
[2020-12-29] MEDS: Metoprolol XL (24 HR) Succ 25 MG TAB.ER.24H PO SCH (08:35)
[2020-12-29] MEDS: RisperiDONE-M 1 MG TAB.RAPDIS PO SCH ×3 (08:36→20:04)
[2020-12-29] MEDS: Fluticasone Propionate Nasal 50 MCG/SPRAY BOTTLE NS SCH (08:39)
[2020-12-29] MEDS: hydrOXYzine pamoate 25 MG CAPSULE PO PRN (17:52)
[2020-12-29] MEDS: traZODone 50 MG TABLET PO PRN (20:04)
[2020-12-30] MEDS: traZODone 50 MG TABLET PO PRN ×2 (02:27→20:09)
[2020-12-30] MEDS: Acetaminophen 325 MG TABLET PO PRN ×2 (02:40→21:25)
[2020-12-30] MEDS: Fluticasone Propionate Nasal 50 MCG/SPRAY BOTTLE NS SCH (08:36)
[2020-12-30] MEDS: Metoprolol XL (24 HR) Succ 25 MG TAB.ER.24H PO SCH (08:37)
[2020-12-30] MEDS: Lithium Carbonate 300 MG CAPSULE PO SCH ×2 (08:37→20:09)
[2020-12-30] MEDS: RisperiDONE-M 1 MG TAB.RAPDIS PO SCH ×3 (08:37→20:09)
[2020-12-30] MEDS: Nitrofurantoin (BID) 100 MG CAPSULE PO SCH ×2 (08:37→16:41)
[2020-12-30] MEDS ORDERED: Metoprolol XL (24 HR) Succ 25 MG TAB.ER.24H PO ONE (12:33)
[2020-12-30] MEDS: hydrOXYzine pamoate 25 MG CAPSULE PO PRN (17:10)
[2020-12-31] MEDS: RisperiDONE-M 1 MG TAB.RAPDIS PO SCH ×3 (07:59→20:47)
[2020-12-31] MEDS: Metoprolol XL (24 HR) Succ 25 MG TAB.ER.24H PO SCH (07:59)
[2020-12-31] MEDS: Lithium Carbonate 300 MG CAPSULE PO SCH ×2 (07:59→20:44)
[2020-12-31] MEDS: Nitrofurantoin (BID) 100 MG CAPSULE PO SCH ×2 (07:59→17:15)
[2020-12-31] MEDS: Fluticasone Propionate Nasal 50 MCG/SPRAY BOTTLE NS SCH (08:01)
[2020-12-31] MEDS ORDERED: Paliperidone Palmitate 234 MG/1.5 ML SYRINGE IM ONE (11:07)
[2020-12-31] MEDS: traZODone 50 MG TABLET PO PRN (20:45)
[2020-12-31] MEDS: hydrOXYzine pamoate 25 MG CAPSULE PO PRN (20:46)
[2021-01-01] MEDS: hydrOXYzine pamoate 25 MG CAPSULE PO PRN ×2 (06:13→17:02)
[2021-01-01] MEDS: Fluticasone Propionate Nasal 50 MCG/SPRAY BOTTLE NS SCH (08:50)
[2021-01-01] MEDS: Nitrofurantoin (BID) 100 MG CAPSULE PO SCH (08:52)
[2021-01-01] MEDS: RisperiDONE-M 1 MG TAB.RAPDIS PO SCH ×3 (08:52→21:08)
[2021-01-01] MEDS: Lithium Carbonate 300 MG CAPSULE PO SCH ×2 (08:53→21:08)
[2021-01-01] MEDS: Metoprolol XL (24 HR) Succ 25 MG TAB.ER.24H PO SCH (08:53)
[2021-01-01] MEDS: *HR* LORazepam 1 MG TABLET PO SCH ×2 (10:50→21:08)
[2021-01-01] MEDS: Mag Hydrox/Al Hydrox/Simeth 30 ML UDC PO PRN (13:09)
[2021-01-01] MEDS: traZODone 50 MG TABLET PO PRN (21:08)
[2021-01-02] MEDS: Fluticasone Propionate Nasal 50 MCG/SPRAY BOTTLE NS SCH (08:41)
[2021-01-02] MEDS: Metoprolol XL (24 HR) Succ 25 MG TAB.ER.24H PO SCH (08:41)
[2021-01-02] MEDS: *HR* LORazepam 1 MG TABLET PO SCH ×2 (08:42→20:19)
[2021-01-02] MEDS: RisperiDONE-M 1 MG TAB.RAPDIS PO SCH (08:42)
[2021-01-02] MEDS: Lithium Carbonate 300 MG CAPSULE PO SCH ×2 (08:42→20:19)
[2021-01-02] MEDS: Acetaminophen 325 MG TABLET PO PRN ×2 (14:43→21:25)
[2021-01-02] MEDS: hydrOXYzine pamoate 25 MG CAPSULE PO PRN (20:18)
[2021-01-02] MEDS: traZODone 50 MG TABLET PO PRN (20:19)
[2021-01-03] MEDS: Lithium Carbonate 300 MG CAPSULE PO SCH ×2 (08:46→21:06)
[2021-01-03] MEDS: *HR* LORazepam 1 MG TABLET PO SCH ×2 (08:46→21:06)
[2021-01-03] MEDS: Metoprolol XL (24 HR) Succ 25 MG TAB.ER.24H PO SCH (08:46)
[2021-01-03] MEDS: Fluticasone Propionate Nasal 50 MCG/SPRAY BOTTLE NS SCH (09:12)
[2021-01-03] MEDS: hydrOXYzine pamoate 25 MG CAPSULE PO PRN ×2 (13:57→21:06)
[2021-01-03] MEDS: traZODone 50 MG TABLET PO PRN (21:06)
[2021-01-03] MEDS: Acetaminophen 325 MG TABLET PO PRN (21:53)
[2021-01-04] MEDS: Lithium Carbonate 300 MG CAPSULE PO SCH ×2 (08:58→21:33)
[2021-01-04] MEDS: *HR* LORazepam 1 MG TABLET PO SCH ×2 (08:58→21:33)
[2021-01-04] MEDS: Fluticasone Propionate Nasal 50 MCG/SPRAY BOTTLE NS SCH (08:59)
[2021-01-04] MEDS: Metoprolol XL (24 HR) Succ 25 MG TAB.ER.24H PO SCH (08:59)
[2021-01-04] MEDS ORDERED: Paliperidone Palmitate 156 MG/ML SYRINGE IM SCH (09:00)
[2021-01-04] MEDS: traZODone 50 MG TABLET PO PRN (21:33)
[2021-01-05] MEDS: Acetaminophen 325 MG TABLET PO PRN ×2 (00:16→21:08)
[2021-01-05] MEDS: hydrOXYzine pamoate 25 MG CAPSULE PO PRN ×2 (00:16→21:08)
[2021-01-05] MEDS: Fluticasone Propionate Nasal 50 MCG/SPRAY BOTTLE NS SCH (08:36)
[2021-01-05] MEDS: Metoprolol XL (24 HR) Succ 25 MG TAB.ER.24H PO SCH (08:36)
[2021-01-05] MEDS: *HR* LORazepam 1 MG TABLET PO SCH ×2 (08:36→21:07)
[2021-01-05] MEDS: Lithium Carbonate 300 MG CAPSULE PO SCH ×2 (08:36→21:07)
[2021-01-05] MEDS: traZODone 50 MG TABLET PO PRN (21:08)
[2021-01-06] MEDS: hydrOXYzine pamoate 25 MG CAPSULE PO PRN ×2 (04:57→20:52)
[2021-01-06] MEDS: *HR* LORazepam 1 MG TABLET PO SCH ×3 (08:10→20:52)
[2021-01-06] MEDS: Fluticasone Propionate Nasal 50 MCG/SPRAY BOTTLE NS SCH (08:10)
[2021-01-06] MEDS: Lithium Carbonate 300 MG CAPSULE PO SCH ×2 (08:10→20:53)
[2021-01-06] MEDS: Metoprolol XL (24 HR) Succ 25 MG TAB.ER.24H PO SCH (08:11)
[2021-01-06] MEDS: traZODone 50 MG TABLET PO PRN (20:52)
[2021-01-06] MEDS: Acetaminophen 325 MG TABLET PO PRN (20:52)
[2021-01-06] MEDS: Perphenazine 2 MG TABLET PO SCH (20:53)
[2021-01-07] MEDS: hydrOXYzine pamoate 25 MG CAPSULE PO PRN ×2 (04:43→20:53)
[2021-01-07] MEDS: Perphenazine 2 MG TABLET PO SCH ×2 (09:00→20:54)
[2021-01-07] MEDS: Fluticasone Propionate Nasal 50 MCG/SPRAY BOTTLE NS SCH (09:00)
[2021-01-07] MEDS: Metoprolol XL (24 HR) Succ 25 MG TAB.ER.24H PO SCH (09:00)
[2021-01-07] MEDS: Lithium Carbonate 300 MG CAPSULE PO SCH ×2 (09:01→20:54)
[2021-01-07] MEDS: *HR* LORazepam 1 MG TABLET PO SCH ×3 (09:01→20:54)
[2021-01-07] MEDS: traZODone 50 MG TABLET PO PRN (20:54)
[2021-01-08] MEDS: hydrOXYzine pamoate 25 MG CAPSULE PO PRN ×2 (02:37→21:01)
[2021-01-08] MEDS: Mag Hydrox/Al Hydrox/Simeth 30 ML UDC PO PRN (02:39)
[2021-01-08] MEDS: *HR* LORazepam 1 MG TABLET PO SCH ×3 (08:49→21:01)
[2021-01-08] MEDS: Perphenazine 2 MG TABLET PO SCH (08:49)
[2021-01-08] MEDS: Metoprolol XL (24 HR) Succ 25 MG TAB.ER.24H PO SCH (08:49)
[2021-01-08] MEDS: Fluticasone Propionate Nasal 50 MCG/SPRAY BOTTLE NS SCH (08:50)
[2021-01-08] MEDS: Lithium Carbonate 300 MG CAPSULE PO SCH ×2 (08:50→21:01)
[2021-01-08] MEDS: Acetaminophen 325 MG TABLET PO PRN (13:28)
[2021-01-08 20:29] VITALS: O2SAT 98
[2021-01-08] MEDS: Perphenazine 8 MG TABLET PO SCH (21:01)
[2021-01-08] MEDS: traZODone 50 MG TABLET PO PRN (21:01)
[2021-01-09] MEDS: *HR* LORazepam 1 MG TABLET PO SCH ×3 (08:26→20:35)
[2021-01-09] MEDS: Perphenazine 2 MG TABLET PO SCH (08:27)
[2021-01-09] MEDS: Metoprolol XL (24 HR) Succ 25 MG TAB.ER.24H PO SCH (08:27)
[2021-01-09] MEDS: Lithium Carbonate 300 MG CAPSULE PO SCH ×2 (08:27→20:35)
[2021-01-09] MEDS: Fluticasone Propionate Nasal 50 MCG/SPRAY BOTTLE NS SCH (08:28)
[2021-01-09] MEDS: Acetaminophen 325 MG TABLET PO PRN (09:31)
[2021-01-09] MEDS: traZODone 50 MG TABLET PO PRN (20:35)
[2021-01-09] MEDS: Perphenazine 8 MG TABLET PO SCH (20:35)
[2021-01-09] MEDS: hydrOXYzine pamoate 25 MG CAPSULE PO PRN (20:35)
[2021-01-10] MEDS: Mag Hydrox/Al Hydrox/Simeth 30 ML UDC PO PRN (03:12)
[2021-01-10] MEDS: hydrOXYzine pamoate 25 MG CAPSULE PO PRN (03:40)
[2021-01-10] MEDS: Lithium Carbonate 300 MG CAPSULE PO SCH (08:32)
[2021-01-10] MEDS: Metoprolol XL (24 HR) Succ 25 MG TAB.ER.24H PO SCH (08:32)
[2021-01-10] MEDS: Perphenazine 2 MG TABLET PO SCH (08:32)
[2021-01-10] MEDS: Fluticasone Propionate Nasal 50 MCG/SPRAY BOTTLE NS SCH (08:33)
[2021-01-10] MEDS: *HR* LORazepam 1 MG TABLET PO SCH (09:18)
[2021-01-10 09:51] VITALS: BP 116/77; PULSE 81; TEMP 98.4
== END 2021-01-10 12:48 | disposition home or self-care (01) | DRG 885 ==
LOC: EMEROOARM 19:16 → 1ANU 12-23 02:34
PROVIDERS: ADMIT Psychiatry & Neurology Psychiatry; ATTEND Psychiatry & Neurology Psychiatry

== ENCOUNTER 2021-01-22 11:52 | Inpatient (IN) ==
[2021-01-22 12:40] LABS: Bacteria,Urine Few per hpf (None-Few); Bilirubin,Urine Negative (Negative); Blood,Urine Small (Negative); Clarity,Urine Clear (Clear); Color,Urine Light-Yellow (Yellow); Glucose,Urine (UA) Normal (Normal); Ketones,Urine Negative (Negative); Leukocyte Esterase,Urine Moderate (Negative); Mucus,Urine Few per lpf (None-Few); Nitrite,Urine Negative (Negative); Protein,Urine Negative (Neg-Trace); RBC,Urine 0-3 per hpf (0-3); Specific Gravity,Urine 1.011 (1.010-1.025); Squamous Epithelial Cell,Urine Moderate per hpf (None-Few); Urobilinogen,Urine Normal (Normal)
[2021-01-22 12:51] LABS: Amphetamine Screen,Urine Negative ng/mL (Cutoff=1000); Barbiturate Screen,Urine Negative ng/mL (Cutoff=200); Benzodiazepines Screen,Urine Negative ng/mL (Cutoff=200); Cannabinoid Screen,Urine Negative ng/mL (Cutoff = 50); Cocaine Screen,Urine Negative ng/mL (Cutoff= 300); Opiate Screen,Urine Negative ng/mL (Cutoff=300); Phencyclidine Screen,Urine Negative ng/mL (Cutoff=25)
[2021-01-22 13:06] LABS: Basophils # 0.1 K/mcL (0.0-0.2); Basophils % 0.5 %; Eosinophils # 0.2 K/mcL (0.0-0.6); Eosinophils % 1.8 %; Hematocrit 36.5 % (35.3-44.9); Hemoglobin 11.5 g/dL (11.5-15.4); Immature Granulocytes % 0.2 % (0-4); Lymphocytes % 9.9 %; Mean Corpuscular HGB Conc 31.5 g/dL (31.6-35.5); Mean Corpuscular Hemoglobin 26.7 pg (28.0-33.3); Mean Corpuscular Volume 84.9 fL (83.0-100.0); Mean Platelet Volume 10.5 fL (9.4-12.4); Monocytes # 0.8 K/mcL (0.0-1.3); Monocytes % 7.1 %; Neutrophils # 8.5 K/mcL (1.6-8.9); Platelet Count 328 K/mcL (140-400); Red Cell Distribution Width 14.7 % (11.5-14.5); Segmented Neutrophils % 80.5 %; White Blood Count 10.5 K/mcL (4.3-11.1)
[2021-01-22 13:25] LABS: Acetaminophen < 10 mcg/mL (10-20); BUN/Creatinine Ratio 14 (6-26); Blood Urea Nitrogen 10 mg/dL (6-20); Calcium 8.5 mg/dL (8.6-10.3); Carbon Dioxide 23 mEq/L (23-29); Chloride 108 mEq/L (98-107); Ethanol < 10 mg/dL (Less than 10); Glucose 122 mg/dL (70-105); Osmolality,Calculated 288 (280-300); Potassium 4.1 mEq/L (3.5-5.1); Sodium 139 mEq/L (136-145); eGFR For African Americans > 60 (> 60); eGFR For Non-African Americans > 60 (> 60)
[2021-01-22 13:27] LABS: Influenza A PCR Negative (Negative); Influenza B PCR Negative (Negative); Resp. Syncytial Virus PCR Negative (Negative)
[2021-01-22 13:28] LABS: SARS-CoV-2 by PCR (In House) Negative (Negative)
[2021-01-22 13:31] LABS: Thyroid Stimulating Hormone 3.639 mcIU/mL (0.340-5.600)
[2021-01-22 14:38] LABS: Salicylate < 2.5 mg/dL (15.0-30.0)
[2021-01-22] MEDS ORDERED: haloperidoL 5 MG TABLET PO PRN (17:40)
[2021-01-22] MEDS ORDERED: *HR* LORazepam 1 MG TABLET PO PRN (17:40)
[2021-01-22] MEDS ORDERED: *HR* LORazepam 2 MG/ML VIAL IM PRN (17:40)
[2021-01-22] MEDS ORDERED: MOM Conc 10 ML UD.LIQ PO PRN (17:40)
[2021-01-22] MEDS ORDERED: Haloperidol Lactate 5 MG/ML VIAL IM PRN (17:40)
[2021-01-22] MEDS: risperiDONE 1 MG TABLET PO SCH (21:02)
[2021-01-22] MEDS: traZODone 50 MG TABLET PO PRN (21:03)
[2021-01-22] MEDS: hydrOXYzine pamoate 25 MG CAPSULE PO PRN (23:58)
[2021-01-23] MEDS: Metoprolol XL (24 HR) Succ 25 MG TAB.ER.24H PO SCH (08:31)
[2021-01-23] MEDS: risperiDONE 1 MG TABLET PO SCH ×2 (08:31→20:29)
[2021-01-23] MEDS ORDERED: OLANZapine 5 MG TAB.RAPDIS PO ONE (13:11)
[2021-01-23] MEDS: hydrOXYzine pamoate 25 MG CAPSULE PO PRN (20:29)
[2021-01-23] MEDS: traZODone 50 MG TABLET PO PRN (20:29)
[2021-01-24] MEDS: risperiDONE 1 MG TABLET PO SCH ×2 (08:12→20:21)
[2021-01-24] MEDS: Metoprolol XL (24 HR) Succ 25 MG TAB.ER.24H PO SCH (08:12)
[2021-01-24] MEDS: hydrOXYzine pamoate 25 MG CAPSULE PO PRN ×2 (14:47→20:21)
[2021-01-24] MEDS: Mag Hydrox/Al Hydrox/Simeth 30 ML UDC PO PRN (18:35)
[2021-01-24] MEDS: Melatonin 3 MG TABLET PO PRN (20:22)
[2021-01-24] MEDS: traZODone 50 MG TABLET PO PRN (22:27)
[2021-01-25] MEDS: Metoprolol XL (24 HR) Succ 25 MG TAB.ER.24H PO SCH (08:22)
[2021-01-25] MEDS: risperiDONE 1 MG TABLET PO SCH ×2 (08:22→20:45)
[2021-01-25 09:44] LABS: Albumin 4.2 g/dL (3.5-5.7); Albumin/Globulin Ratio 1.7 (1.1-2.2); Bilirubin,Direct 0.1 mg/dL (0.0-0.2); Bilirubin,Indirect 0.5 mg/dL (0.0-1.0); Bilirubin,Total 0.6 mg/dL (0.3-1.0); Chol/HDL Ratio 2.5 (0-4.9); Globulin 2.5 g/dL (2.4-3.5); Total Protein 6.7 g/dL (6.4-8.9)
[2021-01-25 09:59] LABS: Estimated Average Glucose 108 mg/dl; Hemoglobin A1C 5.4 %
[2021-01-25] MEDS: Melatonin 3 MG TABLET PO PRN (20:44)
[2021-01-25] MEDS: hydrOXYzine pamoate 25 MG CAPSULE PO PRN (20:45)
[2021-01-25] MEDS: traZODone 50 MG TABLET PO PRN (20:45)
[2021-01-25] MEDS: Acetaminophen 325 MG TABLET PO PRN (20:45)
[2021-01-26] MEDS: risperiDONE 1 MG TABLET PO SCH ×2 (09:02→20:07)
[2021-01-26] MEDS: Metoprolol XL (24 HR) Succ 25 MG TAB.ER.24H PO SCH (09:02)
[2021-01-26] MEDS: Divalproex (12 HR) 500 MG TABLET PO SCH (20:07)
[2021-01-26] MEDS: Melatonin 3 MG TABLET PO PRN (20:07)
[2021-01-26] MEDS: traZODone 50 MG TABLET PO PRN (20:07)
[2021-01-26] MEDS: Ibuprofen 400 MG TABLET PO PRN (20:07)
[2021-01-26] MEDS: hydrOXYzine pamoate 25 MG CAPSULE PO PRN (20:07)
[2021-01-27] MEDS: risperiDONE 1 MG TABLET PO SCH ×2 (10:16→20:12)
[2021-01-27] MEDS: Metoprolol XL (24 HR) Succ 25 MG TAB.ER.24H PO SCH (10:17)
[2021-01-27] MEDS: Divalproex (12 HR) 500 MG TABLET PO SCH ×2 (10:17→20:12)
[2021-01-27] MEDS: OLANZapine 5 MG TAB.RAPDIS PO PRN (13:31)
[2021-01-27] MEDS: Melatonin 3 MG TABLET PO PRN (20:12)
[2021-01-27] MEDS: traZODone 50 MG TABLET PO PRN (20:13)
[2021-01-27] MEDS: hydrOXYzine pamoate 25 MG CAPSULE PO PRN (20:13)
[2021-01-27] MEDS: Acetaminophen 325 MG TABLET PO PRN (20:13)
[2021-01-28] MEDS: risperiDONE 1 MG TABLET PO SCH ×2 (08:08→20:44)
[2021-01-28] MEDS: Metoprolol XL (24 HR) Succ 25 MG TAB.ER.24H PO SCH (08:09)
[2021-01-28] MEDS: hydrOXYzine pamoate 25 MG CAPSULE PO PRN ×3 (08:09→18:18)
[2021-01-28] MEDS: Divalproex (12 HR) 500 MG TABLET PO SCH ×2 (08:10→20:44)
[2021-01-28] MEDS: Melatonin 3 MG TABLET PO PRN (20:44)
[2021-01-28] MEDS: traZODone 50 MG TABLET PO PRN (20:44)
[2021-01-28] MEDS: Acetaminophen 325 MG TABLET PO PRN (20:44)
[2021-01-28] MEDS: OLANZapine 5 MG TAB.RAPDIS PO PRN (22:08)
[2021-01-28] MEDS: Mag Hydrox/Al Hydrox/Simeth 30 ML UDC PO PRN (22:08)
[2021-01-29] MEDS: Metoprolol XL (24 HR) Succ 25 MG TAB.ER.24H PO SCH (09:38)
[2021-01-29] MEDS: risperiDONE 1 MG TABLET PO SCH ×2 (09:38→20:55)
[2021-01-29] MEDS: Divalproex (12 HR) 500 MG TABLET PO SCH ×2 (09:38→20:55)
[2021-01-29] MEDS: hydrOXYzine pamoate 25 MG CAPSULE PO PRN ×3 (09:38→20:56)
[2021-01-29] MEDS: OLANZapine 5 MG TAB.RAPDIS PO PRN ×2 (15:20→20:55)
[2021-01-29 17:33] LABS: Amorphous Sediment,Urine Few per hpf (None-Few); Bacteria,Urine Few per hpf (None-Few); Bilirubin,Urine Negative (Negative); Blood,Urine Small (Negative); Clarity,Urine Turbid (Clear); Color,Urine Light-Yellow (Yellow); Glucose,Urine (UA) Normal (Normal); Ketones,Urine Negative (Negative); Leukocyte Esterase,Urine Negative (Negative); Mucus,Urine Many per lpf (None-Few); Nitrite,Urine Negative (Negative); Protein,Urine Trace mg/dL (Neg-Trace); RBC,Urine 0-3 per hpf (0-3); Specific Gravity,Urine 1.016 (1.010-1.025); Squamous Epithelial Cell,Urine Few per hpf (None-Few); Urobilinogen,Urine Normal (Normal)
[2021-01-29] MEDS: Melatonin 3 MG TABLET PO PRN (20:55)
[2021-01-29] MEDS: traZODone 50 MG TABLET PO PRN (20:55)
[2021-01-29] MEDS: Acetaminophen 325 MG TABLET PO PRN (20:56)
[2021-01-30] MEDS: hydrOXYzine pamoate 25 MG CAPSULE PO PRN ×2 (06:37→20:30)
[2021-01-30] MEDS: Divalproex (12 HR) 500 MG TABLET PO SCH ×2 (08:05→20:30)
[2021-01-30] MEDS: Metoprolol XL (24 HR) Succ 25 MG TAB.ER.24H PO SCH (08:05)
[2021-01-30] MEDS: risperiDONE 1 MG TABLET PO SCH ×2 (08:05→20:30)
[2021-01-30] MEDS: OLANZapine 5 MG TAB.RAPDIS PO PRN ×2 (15:37→20:30)
[2021-01-30] MEDS: Melatonin 3 MG TABLET PO PRN (20:30)
[2021-01-30] MEDS: Acetaminophen 325 MG TABLET PO PRN (20:30)
[2021-01-30] MEDS: traZODone 50 MG TABLET PO PRN (20:30)
[2021-01-31] MEDS: hydrOXYzine pamoate 25 MG CAPSULE PO PRN ×2 (06:38→17:14)
[2021-01-31] MEDS: risperiDONE 1 MG TABLET PO SCH ×2 (08:01→20:08)
[2021-01-31] MEDS: Metoprolol XL (24 HR) Succ 25 MG TAB.ER.24H PO SCH (08:01)
[2021-01-31] MEDS: Divalproex (12 HR) 500 MG TABLET PO SCH ×2 (08:02→20:07)
[2021-01-31] MEDS: OLANZapine 5 MG TAB.RAPDIS PO PRN (20:07)
[2021-01-31] MEDS: Acetaminophen 325 MG TABLET PO PRN (20:08)
[2021-01-31] MEDS: Melatonin 3 MG TABLET PO PRN (20:08)
[2021-01-31] MEDS: traZODone 50 MG TABLET PO PRN (20:08)
[2021-02-01] MEDS: Divalproex (12 HR) 500 MG TABLET PO SCH ×2 (09:00→20:22)
[2021-02-01] MEDS ORDERED: Paliperidone Palmitate 234 MG/1.5 ML SYRINGE IM SCH (09:00)
[2021-02-01] MEDS: RisperiDAL 3 MG TABLET PO SCH ×2 (09:00→20:22)
[2021-02-01] MEDS: Metoprolol XL (24 HR) Succ 25 MG TAB.ER.24H PO SCH (09:00)
[2021-02-01] MEDS: OLANZapine 5 MG TAB.RAPDIS PO PRN (12:52)
[2021-02-01] MEDS ORDERED: Fluconazole 150 MG TABLET PO ONE (17:16)
[2021-02-01] MEDS: Melatonin 3 MG TABLET PO PRN (20:22)
[2021-02-01] MEDS: Acetaminophen 325 MG TABLET PO PRN (20:22)
[2021-02-01] MEDS: hydrOXYzine pamoate 25 MG CAPSULE PO PRN (20:22)
[2021-02-01] MEDS: traZODone 50 MG TABLET PO PRN (22:50)
[2021-02-02] MEDS: RisperiDAL 3 MG TABLET PO SCH (08:04)
[2021-02-02] MEDS: Metoprolol XL (24 HR) Succ 25 MG TAB.ER.24H PO SCH (08:04)
[2021-02-02] MEDS: Divalproex (12 HR) 500 MG TABLET PO SCH ×2 (08:04→20:03)
[2021-02-02] MEDS: hydrOXYzine pamoate 25 MG CAPSULE PO PRN ×2 (13:55→20:03)
[2021-02-02] MEDS: estradioL 0.5 MG TABLET PO SCH (16:16)
[2021-02-02] MEDS: Ibuprofen 400 MG TABLET PO PRN (16:16)
[2021-02-02] MEDS: haloperidoL 5 MG TABLET PO SCH (20:03)
[2021-02-02] MEDS: Melatonin 3 MG TABLET PO PRN (20:04)
[2021-02-03] MEDS: traZODone 50 MG TABLET PO PRN ×2 (00:03→20:11)
[2021-02-03] MEDS: Metoprolol XL (24 HR) Succ 25 MG TAB.ER.24H PO SCH (08:25)
[2021-02-03] MEDS: haloperidoL 5 MG TABLET PO SCH ×2 (08:25→20:11)
[2021-02-03] MEDS: estradioL 0.5 MG TABLET PO SCH (08:25)
[2021-02-03] MEDS: Divalproex (12 HR) 500 MG TABLET PO SCH ×2 (08:25→20:11)
[2021-02-03] MEDS: hydrOXYzine pamoate 25 MG CAPSULE PO PRN ×2 (12:09→17:53)
[2021-02-03] MEDS: Acetaminophen 325 MG TABLET PO PRN (12:30)
[2021-02-03] MEDS: OLANZapine 5 MG TAB.RAPDIS PO PRN ×2 (13:56→21:38)
[2021-02-03] MEDS: Melatonin 3 MG TABLET PO PRN (23:37)
[2021-02-04] MEDS: Metoprolol XL (24 HR) Succ 25 MG TAB.ER.24H PO SCH (08:02)
[2021-02-04] MEDS: haloperidoL 5 MG TABLET PO SCH ×2 (08:02→20:53)
[2021-02-04] MEDS: estradioL 0.5 MG TABLET PO SCH (08:02)
[2021-02-04] MEDS: Divalproex (12 HR) 500 MG TABLET PO SCH ×2 (08:02→20:53)
[2021-02-04] MEDS: Acetaminophen 325 MG TABLET PO PRN ×2 (16:27→23:12)
[2021-02-04 19:49] LABS: Bilirubin,Urine Negative (Negative); Blood,Urine Negative (Negative); Clarity,Urine Clear (Clear); Color,Urine Light-Yellow (Yellow); Glucose,Urine (UA) Normal (Normal); Ketones,Urine Negative (Negative); Leukocyte Esterase,Urine Negative (Negative); Nitrite,Urine Negative (Negative); Protein,Urine Negative (Neg-Trace); Specific Gravity,Urine 1.016 (1.010-1.025); Urobilinogen,Urine Normal (Normal)
[2021-02-04] MEDS: hydrOXYzine pamoate 25 MG CAPSULE PO PRN (23:13)
[2021-02-04] MEDS: OLANZapine 5 MG TAB.RAPDIS PO PRN (23:13)
[2021-02-05] MEDS: traZODone 50 MG TABLET PO PRN ×2 (01:24→20:17)
[2021-02-05] MEDS: estradioL 0.5 MG TABLET PO SCH (08:15)
[2021-02-05] MEDS: Metoprolol XL (24 HR) Succ 25 MG TAB.ER.24H PO SCH (08:15)
[2021-02-05] MEDS: Divalproex (12 HR) 500 MG TABLET PO SCH ×2 (08:15→20:17)
[2021-02-05] MEDS: haloperidoL 5 MG TABLET PO SCH ×2 (08:15→20:17)
[2021-02-05] MEDS: hydrOXYzine pamoate 25 MG CAPSULE PO PRN (20:17)
[2021-02-06] MEDS: hydrOXYzine pamoate 25 MG CAPSULE PO PRN ×3 (05:07→15:37)
[2021-02-06] MEDS: haloperidoL 5 MG TABLET PO SCH ×2 (08:53→20:13)
[2021-02-06] MEDS: estradioL 0.5 MG TABLET PO SCH (08:53)
[2021-02-06] MEDS: Divalproex (12 HR) 500 MG TABLET PO SCH ×2 (08:53→20:12)
[2021-02-06] MEDS: Metoprolol XL (24 HR) Succ 25 MG TAB.ER.24H PO SCH (08:53)
[2021-02-06] MEDS: Acetaminophen 325 MG TABLET PO PRN (15:37)
[2021-02-06] MEDS: Fluticasone Propionate Nasal 50 MCG/SPRAY BOTTLE NS PRN (20:11)
[2021-02-06] MEDS: traZODone 50 MG TABLET PO PRN (20:12)
[2021-02-06] MEDS: Melatonin 3 MG TABLET PO PRN (20:12)
[2021-02-06] MEDS: Ibuprofen 400 MG TABLET PO PRN (20:12)
[2021-02-06] MEDS: OLANZapine 5 MG TAB.RAPDIS PO PRN (20:12)
[2021-02-07] MEDS: Metoprolol XL (24 HR) Succ 25 MG TAB.ER.24H PO SCH (08:12)
[2021-02-07] MEDS: estradioL 0.5 MG TABLET PO SCH (08:12)
[2021-02-07] MEDS: haloperidoL 5 MG TABLET PO SCH ×2 (08:12→20:22)
[2021-02-07] MEDS: Divalproex (12 HR) 500 MG TABLET PO SCH ×2 (08:13→20:22)
[2021-02-07] MEDS: *HR* LORazepam 1 MG TABLET PO SCH ×2 (15:53→20:22)
[2021-02-07] MEDS: Acetaminophen 325 MG TABLET PO PRN (16:21)
[2021-02-07] MEDS: traZODone 50 MG TABLET PO PRN (20:22)
[2021-02-08] MEDS: *HR* LORazepam 1 MG TABLET PO SCH ×2 (08:50→20:29)
[2021-02-08] MEDS: Metoprolol XL (24 HR) Succ 25 MG TAB.ER.24H PO SCH (08:51)
[2021-02-08] MEDS: Divalproex (12 HR) 500 MG TABLET PO SCH ×2 (08:51→20:28)
[2021-02-08] MEDS: haloperidoL 5 MG TABLET PO SCH ×2 (08:51→20:28)
[2021-02-08] MEDS: estradioL 0.5 MG TABLET PO SCH (08:51)
[2021-02-08] MEDS: hydrOXYzine pamoate 25 MG CAPSULE PO PRN (17:28)
[2021-02-08] MEDS: Fluticasone Propionate Nasal 50 MCG/SPRAY BOTTLE NS PRN (20:27)
[2021-02-08] MEDS: Melatonin 3 MG TABLET PO PRN (20:28)
[2021-02-08] MEDS: Acetaminophen 325 MG TABLET PO PRN (20:29)
[2021-02-09] MEDS: Metoprolol XL (24 HR) Succ 25 MG TAB.ER.24H PO SCH (09:40)
[2021-02-09] MEDS: Divalproex (12 HR) 500 MG TABLET PO SCH (09:40)
[2021-02-09] MEDS: *HR* LORazepam 1 MG TABLET PO SCH (09:40)
[2021-02-09] MEDS: estradioL 0.5 MG TABLET PO SCH (09:40)
[2021-02-09] MEDS: haloperidoL 5 MG TABLET PO SCH (09:40)
[2021-02-09 11:39] VITALS: BP 121/82; PULSE 105; TEMP 97.9; O2SAT 96
[2021-02-09] MEDS ORDERED: FLU Vac QV 21-22 (6Month+)/PF 0.5 ML SYRINGE IM ONE (13:06)
== END 2021-02-09 15:00 | disposition home or self-care (01) | DRG 885 ==
LOC: EMEROOARM 11:52 → INTOOBSV 16:58 → 1ANU 16:58
PROVIDERS: ADMIT Psychiatry & Neurology Psychiatry; ATTEND Psychiatry & Neurology Psychiatry